=== PATIENT | female | born 1980 | race Caucasian/White ===

== ENCOUNTER → 2020-10-19 | Outpatient (CLI) | payer BC | LOC: KOH-I 09:51 | DX: S82.402D Unspecified fracture of shaft of left fibula, subsequent encounter for closed fracture with routine healing (principal) | CPT/HCPCS: 73610 ==

== ENCOUNTER → 2020-11-25 | Outpatient (CLI) | payer BC | LOC: KOH-I 08:43 | DX: S82.402A Unspecified fracture of shaft of left fibula, initial encounter for closed fracture (principal); S92.902A Unspecified fracture of left foot, initial encounter for closed fracture | CPT/HCPCS: 73610; 73630 ==